=== PATIENT | female | born 1970 | race Caucasian/White ===

== ENCOUNTER 2021-06-09 20:56 | Emergency (ER) | payer OTHER ==
[2021-06-09] MEDS ORDERED: IBUPROFEN 600 MG TABLET (FP) PO ONE ×2 (21:33→21:50)
[2021-06-09] MEDS ORDERED: ACETAMINOPHEN 325 MG TABLET (FP) PO ONE (21:33)
[2021-06-09 21:36] VITALS: BP 140/89; PULSE 91; TEMP 97.6; BMI 20.5
[2021-06-09] MEDS ORDERED: ACETAMINOPHEN 325 MG TABLET (FP) ONE (21:50)
[2021-06-09] MEDS ORDERED: LIDOCAINE 5% TOPICAL PATCH TP ONE (21:52)
[2021-06-09] MEDS ORDERED: LIDOCAINE 5% TOPICAL PATCH ONE (21:54)
[2021-06-09] MEDS ORDERED: LIDOCAINE PATCH REMOVAL MC SCH (22:00)
== END 2021-06-10 01:48 | disposition left against medical advice (07) ==
LOC: JER 20:56
DX: M54.50 Low back pain, unspecified (principal); F11.10 Opioid abuse, uncomplicated; W01.0XXA Fall on same level from slipping, tripping and stumbling without subsequent striking against object, initial encounter
CPT/HCPCS: 72131-TC; 99284-25